=== PATIENT | female | born 1990 | race Caucasian/White ===

== ENCOUNTER 2019-05-30 23:35 | Inpatient (IN) | payer OTHER ==
[~2019-05-30] VITALS: Ht 160 cm; Wt 67.1 kg
[2019-05-31 00:56] VITALS: BP 100/65
[2019-05-31] MEDS ORDERED: RINGERS SOLUTION,LACTATED 1,000 ML IV ONE ×2 (02:39→13:37)
[2019-05-31] MEDS ORDERED: OXYTOCIN 20 UNITS/LACT RINGERS 1,000 ML IV ONE (02:59)
[2019-05-31] MEDS ORDERED: TERBUTALINE SULFATE 1 MG/ML VIAL SQ PRN (03:00)
[2019-05-31] MEDS ORDERED: LIDOCAINE/PF 1% 30 ML VIAL INJ PRN (03:00)
[2019-05-31] MEDS ORDERED: METOCLOPRAMIDE HCL 5 MG/ML 2 ML VIAL IVP PRN (03:00)
[2019-05-31] MEDS ORDERED: CITRIC ACID/SODIUM CITRATE 30 ML SOLUTION UDCUP PO PRN (03:00)
[2019-05-31] MEDS ORDERED: MISOPROSTOL 25 MCG TABLET VG SCH (03:15)
[2019-05-31] MEDS: RINGERS SOLUTION,LACTATED 1,000 ML IV SCH ×4 (03:17→07:23)
[2019-05-31] MEDS ORDERED: PRENATAL VIT PO (03:53)
[2019-05-31 04:23] LABS: BASOPHILS % (AUTO) 0.5 % (0.0-2.0); EOSINOPHILS % (AUTO) 0.7 % (1.0-6.0); HEMATOCRIT 29.5 % (36-46); HEMOGLOBIN 9.9 g/dL (12.0-16.0); LYMPHOCYTES # (AUTO) 1.9 K/uL (1.0-4.8); LYMPHOCYTES % (AUTO) 20.2 % (22.0-44.0); MEAN CORPUSCULAR HEMOGLOBIN 27.1 pg (26.0-34.0); MEAN CORPUSCULAR HGB CONC 33.4 G/dL (31.0-37.0); MEAN CORPUSCULAR VOLUME 81 fL (80-100); MONOCYTES # (AUTO) 0.6 K/uL (0.1-1.0); MONOCYTES % (AUTO) 6.8 % (2.0-9.0); NEUTROPHILS # (AUTO) 6.8 K/uL (1.8-7.7); NEUTROPHILS % (AUTO) 71.8 % (40.0-70.0); PLATELET COUNT (AUTO)-OB 285 K/uL (150-450); RED BLOOD CELL COUNT(AUTO) 3.64 MIL/uL (4.00-5.20); RED CELL DISTRIBUTION WIDTH 15.1 % (11.5-14.5)
[2019-05-31] MEDS ORDERED: OXYTOCIN 30 UNITS/LACT RINGERS 500 ML IV ONE (04:57)
[2019-05-31] MEDS ORDERED: RINGERS SOLUTION,LACTATED 1,000 ML IV PRN (04:57)
[2019-05-31] MEDS ORDERED: ROPIVACAINE HCL/PF 0.2% 100 ML ED ONE (05:13)
[2019-05-31] MEDS ORDERED: ROPIVACAINE HCL/PF 0.2% 100 ML ED PRN (05:33)
[2019-05-31] MEDS ORDERED: DiphenhydrAMINE HCL 50 MG/ML VIAL IVP PRN (05:45)
[2019-05-31] MEDS ORDERED: ONDANSETRON HCL 4 MG/2 ML VIAL IVP PRN (05:45)
[2019-05-31] MEDS ORDERED: NALBUPHINE HCL 10 MG/ML VIAL IVP PRN (05:45)
[2019-05-31] MEDS ORDERED: OXYTOCIN 30 UNITS/LACT RINGERS 500 ML IV PRN (10:36)
[2019-05-31] MEDS ORDERED: PREN-217 PO (13:41)
[2019-05-31] MEDS ORDERED: GLYCERIN/WITCH HAZEL LEAF 40 PADS JAR TP PRN (13:45)
[2019-05-31] MEDS ORDERED: OxyCODONE HCL/ACETAMINOPHEN 5-325 MG TABLET PO PRN ×2 (13:45)
[2019-05-31] MEDS ORDERED: LANOLIN 7 GM OINTMENT TP PRN (13:45)
[2019-05-31] MEDS ORDERED: MEASLES/MUMPS/RUBELLA VACCINE, LIVE 0.5 ML/VIAL SQ ONE (13:45)
[2019-05-31] MEDS ORDERED: BENZOCAINE 20%/MENTHOL 56 GM SPRAY CANISTER TP PRN (13:45)
[2019-05-31] MEDS: IBUPROFEN 600 MG TABLET PO PRN ×2 (14:46→21:27)
[2019-05-31] MEDS: MAGNESIUM HYDROXIDE SUSPENSION 30 ML UDCUP PO SCH (21:27)
[2019-06-01] MEDS: MAGNESIUM HYDROXIDE SUSPENSION 30 ML UDCUP PO SCH (09:35)
[2019-06-01] MEDS ORDERED: IBUP-2071 PO (10:10)
[2019-06-01] MEDS ORDERED: DOCU-275 PO (10:11)
[2019-06-01] MEDS ORDERED: FERR-89 PO (10:12)
== END 2019-06-01 14:55 | disposition home or self-care (01) | DRG 807 ==
LOC: 4S 23:35 → OBSVTOIN 23:35
PROVIDERS: ADMIT Obstetrics & Gynecology; ATTEND Obstetrics & Gynecology
PROC: 10E0XZZ Delivery of Products of Conception, External Approach (ICD-10-PCS; principal; 2019-05-31)
PROC: 3E0R3BZ Introduction of Anesthetic Agent into Spinal Canal, Percutaneous Approach (ICD-10-PCS; 2019-05-31)
PROC: 00HU33Z Insertion of Infusion Device into Spinal Canal, Percutaneous Approach (ICD-10-PCS; 2019-05-31)
DX: O80 Encounter for full-term uncomplicated delivery (principal); Z37.0 Single live birth; Z3A.39 39 weeks gestation of pregnancy
CPT/HCPCS: 86850; 86900; 86901; J2590; J2795; J7120